=== PATIENT | female | born 1990 | race Caucasian/White ===

== ENCOUNTER 2017-02-23 11:48 | Emergency (ER) | payer SELFPAY ==
[2017-02-23 11:57] VITALS: BP 126/85
--- NOTE | 2017-02-23 12:17 | Emergency Department Report ---
ED General Adult HPI - General Chief complaint: Skin Rash Stated complaint: poss allergic reaction Time Seen by Provider: 02/23/17 11:56 Source: patient Mode of arrival: Ambulatory Limitations: No Limitations - History of Present Illness Initial comments: PT states she has had eczema her entire life. PT states her doctor has given her Tramadol for this. PT states that it does not help. PT states her children have eczema and their doctor gives them a steroid cream that helps. PT states she wants to see a noc engineer because she does not feel like her PCP is helping her. PT states her current rash started yesterday, after cleaning over the weekend and being exposed to dust. PT states dust has aggravated her eczema before. MD Complaint: rash -: Gradual, days(s) Location: face, neck, abdomen, left, right, upper extremity, lower extremity Severity scale (0 -10): 1 Quality: burning Consistency: constant Improves with: none (vasoline, not helping ) Associated Symptoms: rash. denies: fever/chills, nausea/vomiting Treatments Prior to Arrival: none - Related Data Previous Rx's Medication Instructions Recorded Last Taken Type Cetirizine HCl [ZyrTEC] 10 mg PO HS #20 capsule 02/23/17 Unknown Rx Fluticasone [Flonase] 2 spray NS QDAY #1 bottle 02/23/17 Unknown Rx Triamcinolone 0.5% [Kenalog 0.5% 1 applic TP TID #1 tube 02/23/17 Unknown Rx CREAM] Allergies Allergy/AdvReac Type Severity Reaction Status Date / Time No Known Allergies Allergy Unverified 02/23/17 11:57 ED Review of Systems ROS: Stated complaint: poss allergic reaction Other details as noted in HPI Comment: All other systems reviewed and negative Constitutional: denies: chills, fever ENT: congestion Cardiovascular: denies: chest pain Gastrointestinal: denies: abdominal pain, nausea, vomiting Genitourinary: denies: abnormal menses (lmp 2 weeks ago and normal ) ED Past Medical Hx - Past Medical History Previous Medical History?: Yes Hx Hypertension: Yes - Surgical History Past Surgical History?: No - Social History Smoking Status: Never Smoker Substance Use Type: Alcohol - Medications Home Medications: Home Medications Medication Instructions Recorded Confirmed Last Taken Type Cetirizine HCl [ZyrTEC] 10 mg PO HS #20 capsule 02/23/17 Unknown Rx Fluticasone [Flonase] 2 spray NS QDAY #1 bottle 02/23/17 Unknown Rx Triamcinolone 0.5% [Kenalog 0.5% 1 applic TP TID #1 tube 02/23/17 Unknown Rx CREAM] ED Physical Exam - General Limitations: No Limitations General appearance: alert, in no apparent distress - Head Head exam: Present: atraumatic, normocephalic, normal inspection - Eye Eye exam: Present: normal appearance, PERRL, EOMI. Absent: conjunctival injection Pupils: Present: normal accommodation - ENT ENT exam: Present: normal orophraynx, mucous membranes moist, TM's normal bilaterally, normal external ear exam, other (turbinates hypertrophy, + nasal drainage ). Absent: normal exam - Neck Neck exam: Present: normal inspection, full ROM - Respiratory Respiratory exam: Present: normal lung sounds bilaterally. Absent: respiratory distress, chest wall tenderness - Cardiovascular Cardiovascular Exam: Present: regular rate, normal rhythm, normal heart sounds - Extremities Exam Extremities exam: Present: full ROM. Absent: normal inspection (rash noted ), tenderness - Back Exam Back exam: Present: normal inspection, full ROM. Absent: tenderness - Neurological Exam Neurological exam: Present: alert, oriented X3, normal gait - Psychiatric Psychiatric exam: Present: normal affect, normal mood - Skin Skin exam: Present: warm, dry, intact, normal color, rash - Expanded Skin Exam Expanded Distribution of rash: face, neck (post neck with hyperpigmented scaly rash ), RUE, LUE, RLE, LLE Description of rash: Present: macular (scattered rash ), papular (scattered rash noted ). Absent: erythematous, vesicular, blisters, bullous, purpuic, urticarial, discharge, fluctuant, indurated ED Course Vital Signs 02/23/17 11:53 Temperature 98.6 F Pulse Rate 86 Respiratory 19 Rate Blood Pressure 126/85 O2 Sat by Pulse 100 Oximetry Critical Care Time: No Critical care attestation.: If time is entered above; I have spent that time in minutes in the direct care of this critically ill patient, excluding procedure time. ED Disposition Clinical Impression: Rash and nonspecific skin eruption Allergic rhinitis Qualifiers: Chronicity: unspecified Allergic rhinitis trigger: unspecified Allergic rhinitis seasonality: unspecified seasonality Qualified Code(s): J30.9 - Allergic rhinitis, unspecified Disposition: DC-01 TO HOME OR SELFCARE Is pt being admited?: No Does the pt Need Aspirin: No Condition: Stable Instructions: Contact Dermatitis (ED), Allergic Rhinitis (ED), Acute Rash (ED) Additional Instructions: Follow up with PCP in 3-5 days You may need to be evaluated by oyster bed worker/ ENT/ noc engineer Continue using Vaseline Prescriptions: Cetirizine HCl [ZyrTEC] 10 mg PO HS #20 capsule Fluticasone [Flonase] 2 spray NS QDAY #1 bottle Triamcinolone 0.5% [Kenalog 0.5% CREAM] 1 applic TP TID #1 tube Referrals: PRIMARY CARE,MD [Primary Care Provider] - 3-5 Days BRIGID SYED MD [Staff Physician] - 3-5 Days Time of Disposition: 12:22
== END 2017-02-23 13:00 | disposition home or self-care (01) ==
LOC: ED 11:48
DX: R21 Rash and other nonspecific skin eruption (principal); J30.9 Allergic rhinitis, unspecified; I10 Essential (primary) hypertension
CPT/HCPCS: 99282